=== PATIENT | male | born 1975 | race Hispanic/Latino ===

== ENCOUNTER 2017-12-05 09:30 | Day surgery (SDC) | payer MEDICARE ==
[2017-12-05 11:00] LABS: Basophils # (Auto) 0.1 K/mm3 (0.0-0.1); Basophils % (Auto) 0.9 % (0.0-1.8); Eosinophils # (Auto) 0.3 K/mm3 (0.0-0.4); Eosinophils % (Auto) 2.8 % (0.0-4.3); Hematocrit 43.3 % (35.5-45.6); Hemoglobin 15.4 gm/dl (11.8-15.2); Lymphocytes # (Auto) 2.3 K/mm3 (1.2-5.4); Lymphocytes % (Auto) 23.4 % (13.4-35.0); Mean Corpuscular HGB Conc 36 % (32-34); Mean Corpuscular Hemoglobin 29 pg (28-32); Mean Corpuscular Volume 82 fl (84-94); Monocytes # (Auto) 0.9 K/mm3 (0.0-0.8); Monocytes % (Auto) 8.6 % (0.0-7.3); Platelet Count 256 K/mm3 (140-440); Red Blood Count 5.29 M/mm3 (3.65-5.03); Red Cell Distribution Width 14.1 % (13.2-15.2)
[2017-12-05] MEDS ORDERED: NACL 0.9% 500 ML 500 ML IV SCH (11:00)
[2017-12-05 11:11] LABS: INR 0.93 (0.87-1.13)
[2017-12-05 11:12] LABS: BUN/Creatinine Ratio 13; Blood Urea Nitrogen 14 mg/dL (9-20); Calcium 9.3 mg/dL (8.4-10.2); Hemolysis Index 184
[2017-12-05] MEDS ORDERED: HEPARIN/NS 5000 UNIT/500ML(CATH LAB) 1,000 ML IR ONE (11:17)
[2017-12-05] MEDS ORDERED: VERSED ONE (11:17)
[2017-12-05] MEDS ORDERED: HEPARIN 10,000 UNITS/10 ML ONE (11:17)
[2017-12-05] MEDS ORDERED: NITROGLYCERIN SYRINGE 0 ML ONE (11:18)
[2017-12-05] MEDS ORDERED: CALAN ONE (11:18)
[2017-12-05] MEDS ORDERED: SUBLIMAZE ONE (11:18)
[2017-12-05] MEDS ORDERED: XYLOCAINE 2% INFILTRATI ONE (11:18)
[2017-12-05] MEDS ORDERED: ECOTRIN PO ONE (11:27)
--- NOTE | 2017-12-05 12:43 | Short Stay Summary ---
Short Stay Documentation Date of service: 12/05/17 - History H&P: obtained from office - Allergies and Medications Current Medications: Allergies No Known Allergies Allergy (Unverified 12/05/17 10:27) Home Medications Medication Instructions Recorded Confirmed Last Taken Type Metoprolol [Lopressor TAB] 25 mg PO BID #60 tablet 12/05/17 Unknown Rx Active Medications Sodium Chloride (Nacl 0.9% 500 Ml) 500 mls @ 50 mls/hr IV DIRECT CARMEN Stop: 12/05/17 20:59 Last Admin: 12/05/17 10:54 Dose: 50 mls/hr - Brief post op/procedure progress note Date of procedure: 12/05/17 Pre-op diagnosis: abnormal EKG, dyspnea on exertion Procedure: Left heart cath - Hospital course Hospital course: Please see dictated cath report. - Disposition Condition at discharge: Stable Disposition: [id number] TO HOME OR SELFCARE - Discharge Diagnoses (1) Coronary artery disease Status: Chronic (2) Abnormal EKG Status: Chronic (3) Dyspnea on exertion Status: Chronic (4) Hypertension Status: Chronic (5) Diabetes Status: Chronic (6) PVD (peripheral vascular disease) Status: Chronic Short Stay Discharge Plan Activity: advance as tolerated Weight Bearing Status: Weight Bear as Tolerated Diet: low fat, low cholesterol Wound: keep clean and dry Additional Instructions: follow up with primary medical doctor in 1 week, return to Emergency room for medical emergencies. Follow up with: KRYSTINA GLEZ MD [Primary Care Provider] - 7 Days Forms: [facility] PCI D/C Instructions Prescriptions: Metoprolol [Lopressor TAB] 25 mg PO BID #60 tablet
--- NOTE | 2017-12-05 13:57 | Cardiac Catherization Report ---
INDICATION FOR PROCEDURE: The patient is a 42-year-old white gentleman with history of hypertension, diabetes mellitus, severe peripheral vascular disease, who has a preoperative evaluation. He is scheduled for cardiac catheterization because of abnormal EKG and shortness of breath with mild exertion. The patient is aware of the procedure, potential complications, and alternatives of therapy available. DESCRIPTION OF PROCEDURE: The patient was brought to the catheterization laboratory in a fasting condition. The right wrist area and forearm thoroughly cleansed with Betadine solution. Sterile drapes were applied. Local anesthesia was achieved using 2% Xylocaine. Right radial artery puncture was made using 21-gauge arterial puncture needle. Prior to preparing the patient, patient was evaluated for moderate sedation and it was felt appropriate for moderate sedation and patient was sedated with IV Versed and fentanyl. Using 5-Thai multipurpose catheter, angiograms of the left ventricle was performed in REYNOSO projection, followed by angiograms of the left coronary artery and right coronary artery in multiple views. At the end of the procedure, catheter and sheath were removed. Good hemostasis was achieved with pressure bandage. No untoward complications were noted. The patient was sedated starting at 11:50 a.m. and monitored up to 12:05 noon. The patient was monitored with pulse oximetry, EKG, and blood pressure monitoring. No untoward complications were noted. Following findings were noted. HEMODYNAMICS: 1. Opening aortic pressure 111/73, left ventricular pressure 112/29. No gradient across the aortic valve. Estimated ejection fraction 55%. 2. Left ventriculogram done in REYNOSO projection using hand injection showed normal-sized left ventricle with normal contractility. Mitral regurgitation could not be evaluated because of limited amount of dye injected. 3. Right coronary artery is dominant vessel, arises normally from right coronary cusp, is occluded in the proximal part after the origin of the conus branch and right atrial branch. Faint visualization of the distal vessel noted. It is occluded in the proximal part. Left coronary artery arises normally from left coronary cusp. Left main without significant disease and LAD curves around the apex without significant disease. Diagonal branch without significant disease. Circumflex artery is occluded in the mid part before giving rise to any major branches. There is a major ramus branch which shows a segmental 90% lesion. Mid and distal part of this vessel without significant disease. On LAD injection, excellent collaterals were noted to the distal RCA filling the PDA very well. It is to be noted the patient has diffuse calcification throughout the course of the left main, LAD, and RCA. FINAL IMPRESSION: Normal-sized left ventricle with normal contractility with severe disease involving the dominant right coronary artery, which is occluded filling proximally, filling retrograde with excellent collaterals from left anterior descending. Similarly, large ramus branch has significant proximal lesion in addition to occlusion of the nondominant circumflex artery in the proximal to mid part with no antegrade visualization of the vessels. Considering patient has significant disease in dominant right coronary artery along with a large ramus along with an occluded circumflex artery, would continue aggressive risk factor modification and medical therapy. In addition, consideration will be given for percutaneous intervention versus surgical revascularization. The patient's occlusions appear to be very chronic. We will continue present medications including aspirin, atorvastatin. We will add a beta-andres 25 mg b.i.d. and evaluation second opinion will be obtained from metal door assembler at [facility] for possible percutaneous intervention. Procedure was uncomplicated. No untoward complications were noted. The patient was explained of the findings, to the patient and his . JOB# [id number] CAROL/JEREMIAS
[2017-12-05 15:54] VITALS: BP 104/67
== END 2017-12-05 09:31 | disposition home or self-care (01) ==
LOC: CATHLABREC 09:30
PROVIDERS: ATTEND Internal Medicine
DX: I25.10 Atherosclerotic heart disease of native coronary artery without angina pectoris (principal); E11.51 Type 2 diabetes mellitus with diabetic peripheral angiopathy without gangrene; I10 Essential (primary) hypertension; E78.5 Hyperlipidemia, unspecified; E66.9 Obesity, unspecified; Z68.41 Body mass index [BMI] 40.0-44.9, adult; Z79.01 Long term (current) use of anticoagulants; Z79.899 Other long term (current) drug therapy; Z87.891 Personal history of nicotine dependence
CPT/HCPCS: 36415; 80048; 84132; 85025; 85610; 85730; 93005; 93010; 93458; 99156; 99157; C1894; J1644; J2250; J3010; J7040; Q9967